=== PATIENT | male | born 1945 | race Caucasian/White ===

== ENCOUNTER 2018-11-09 09:15 | Day surgery (SDC) | payer MEDICARE, OTHER ==
[~2018-11-09 09:15] MED LIST: GLYCOPYRROLATE 0.4 MG INJ; NEOSTIGMINE 10 MG INJ
[2018-11-09] MEDS: IOHEXOL 300MG/ML 150 ML BTL (09:31)
[2018-11-09] MEDS ORDERED: HEPARIN 1000 UNITS/ML 10 ML INJ ×3 (11:13→13:15)
[2018-11-09] MEDS: HEPARIN 1000 UNITS/ML 10 ML INJ IRR ×2 (11:35→14:15)
[2018-11-09] MEDS ORDERED: MIDAZOLAM 1 MG/ML 2 ML INJ (11:58)
[2018-11-09] MEDS ORDERED: PHENYLephrine 10 MG INJ (12:06)
[2018-11-09] MEDS ORDERED: PROTAMINE 250 MG INJ (14:15)
[2018-11-09] MEDS ORDERED: ROCURONIUM 50 MG INJ (14:26)
[2018-11-09] MEDS ORDERED: LIDOCAINE 2% (SDV) 5 ML INJ (14:26)
[2018-11-09] MEDS ORDERED: CEFAZOLIN 1 GM INJ (14:26)
[2018-11-09] MEDS ORDERED: ETOMIDATE 20 MG INJ (14:26)
[2018-11-09] MEDS ORDERED: hydrALAzine 20 MG INJ (14:27)
[2018-11-09] MEDS ORDERED: ONDANSETRON 4 MG INJ (14:32)
[2018-11-09] MEDS ORDERED: DIPHENHYDRAMINE 50 MG INJ IV (15:00)
[2018-11-09] MEDS ORDERED: FENTAnyl 50 MCG/ML VIAL IV (15:00)
[2018-11-09] MEDS ORDERED: niCARdipine 50 MG in SOD CHLORIDE 0.9% 480 ML IV (15:00)
[2018-11-09] MEDS ORDERED: LABETALOL HCL 20MG INJ IV (15:00)
[2018-11-09] MEDS ORDERED: morphine (1 MG/ML) 10ML SYRINGE IV (15:00)
[2018-11-09] MEDS ORDERED: MEPERIDINE 25 MG INJ IV (15:00)
[2018-11-09] MEDS ORDERED: hydrALAzine 20 MG INJ IV (15:00)
[2018-11-09] MEDS ORDERED: ONDANSETRON 4 MG INJ IV (15:00)
[2018-11-09] MEDS ORDERED: METOCLOPRAMIDE 10 MG INJ IV (15:00)
[2018-11-09] MEDS: ASPIRIN 325 MG TAB PO (15:36)
[2018-11-09] MEDS: LACTATED RINGER'S 500 ML IV ×3 (15:43→22:05)
[2018-11-10] MEDS: LACTATED RINGER'S 500 ML IV ×2 (03:00→05:24)
[2018-11-10] MEDS: SUCRALFATE 1 GM TAB PO ×2 (05:24→12:00)
[2018-11-10 05:35] LABS: ADD MAN DIFF? NO
[2018-11-10 05:46] LABS: BASOPHILS % 0.5 % (0.0-2.0); EOSINOPHILS % 0.2 % (0.0-7.0); HEMOGLOBIN 12.8 g/dl (14.0-18.0); LYMPHOCYTES # 1.7 10^3/ul (0.8-2.9); LYMPHOCYTES % 20.7 % (15.0-51.0); MEAN CORPUSCULAR HEMOGLOBIN 32.9 pg (29.0-33.0); MEAN CORPUSCULAR HGB CONC 32.8 g/dl (32.0-37.0); MEAN CORPUSCULAR VOLUME 100.3 fl (82.0-101.0); MEAN PLATELET VOLUME 10.7 fl (7.4-10.4); MONOCYTE # 1.3 10^3/ul (0.3-0.9); MONOCYTES % 16.1 % (0.0-11.0); NEUTROPHIL # 5.1 10^3/ul (1.6-7.5); PLATELET COUNT 114 10^3/UL (140-415); RED BLOOD COUNT 3.89 10^6/ul (4.70-6.10); RED CELL DISTRIBUTION WIDTH 14.6 % (11.5-14.5)
[2018-11-10 05:46] LABS: WHITE BLOOD COUNT 8.2 10^3/ul (4.8-10.8)
[2018-11-10 06:08] LABS: ANION GAP 8 (5-13); BLOOD UREA NITROGEN 14 mg/dl (7-20); CALCIUM 8.6 mg/dl (8.4-10.2); CARBON DIOXIDE 22 mmol/L (21-31); CHLORIDE 111 mmol/L (97-110); CREATININE 0.79 mg/dl (0.61-1.24); GLUCOSE 107 mg/dl (70-220); POTASSIUM 3.7 mmol/L (3.5-5.1); SODIUM 141 mmol/L (135-144)
[2018-11-10] MEDS: ASPIRIN 325 MG TAB PO (09:13)
[2018-11-10] MEDS: ACETAMINOPHEN 325 MG TAB PO (10:24)
== END 2018-11-10 14:35 | disposition home or self-care (01) ==
LOC: REC 09:15 → SDS 09:15 → REC 14:35 → ICU 15:09 → SDS 11-10 14:35 → REC 11-10 14:35 → SDS 14:43 → ICU 14:43 → REC 15:09 → SDS 11-10 14:35 → ICU 15:09
DX: I71.4 Abdominal aortic aneurysm, without rupture (principal); I10 Essential (primary) hypertension; E78.5 Hyperlipidemia, unspecified; E11.9 Type 2 diabetes mellitus without complications; J44.9 Chronic obstructive pulmonary disease, unspecified
CPT/HCPCS: 34701; 75625; 80048; 82962; 85025; 87081